=== PATIENT | male | born 1990 ===

== ENCOUNTER 2020-09-29 02:37 | Inpatient (IN) | payer OTHER ==
[~2020-09-29] VITALS: Ht 170.2 cm; Wt 103.0 kg
[2020-09-29 03:18] LABS: BASOPHILS % (AUTO) 1 % (0-1); EOSINOPHILS % (AUTO) 2 % (1-7); LYMPHOCYTES % (AUTO) 31 % (22-44); MEAN CORPUSCULAR HEMOGLOBIN 30.2 pg (27.5-34.5); MEAN CORPUSCULAR HGB CONC 34.5 g/dL (33.2-36.2); MEAN PLATELET VOLUME 7.8 fL (7.4-10.4); MONOCYTES % (AUTO) 8 % (2-9); NEUTROPHILS % (AUTO) 59 % (42-75); PLATELET COUNT 206 x10^3/uL (130-400); RED BLOOD COUNT 5.94 x10^6/uL (4.38-5.82); RED CELL DISTRIBUTION WIDTH 13.4 % (9.4-14.8)
[2020-09-29 03:19] LABS: MD NO
[2020-09-29 03:26] LABS: ALBUMIN 3.8 g/dL (3.4-5.0); ANION GAP 5 mmol/L (5-15); CHLORIDE 110 mmol/L (98-107); CREATININE 1.21 mg/dL (0.7-1.3)
[2020-09-29 03:29] LABS: TROPONIN I 0.036 ng/mL (0.000-0.045)
[2020-09-29] MEDS ORDERED: HEPARIN 25,000 UNITS/250ML PMX 250 ML ONE (03:29)
[2020-09-29] MEDS ORDERED: HEPARIN 5,000 UNITS/ML, 1ML IV ONE (03:30)
[2020-09-29] MEDS ORDERED: HEPARIN 25,000 UNITS/250ML PMX 250 ML IV PRN (03:30)
[2020-09-29] MEDS ORDERED: morphine SULFATE 10 MG/ML, 1ML IVPush PRN (05:00)
[2020-09-29] MEDS ORDERED: ACETAMINOPHEN 325 MG TABLET PO PRN (05:00)
[2020-09-29] MEDS ORDERED: ONDANSETRON 2MG/ML, 2ML IVPush PRN (05:00)
[2020-09-29] MEDS ORDERED: HEPARIN 5,000 UNITS/ML, 1ML ONE ×2 (05:39→11:48)
[2020-09-29] MEDS: HEPARIN 5,000 UNITS/ML, 1ML IV PRN ×2 (05:45→11:51)
--- NOTE | 2020-09-29 05:54 | NUR ---
PT CONTINUES ON 2L O2, OFFICERS AT BEDSIDE, PT IN CUFFS. PT CALM AND COOPERATIVE WITH CARE. DENIES ANY FURTHER NEEDS OR CONCERNS AT THIS TIME.
--- NOTE | 2020-09-29 06:37 | NUR ---
PT UPDATED ON PLAN OF CARE. DENIES ANY FURTHER NEEDS OR CONCERNS. OFFICERS CONTINUE AT BEDSIDE.
--- NOTE | 2020-09-29 07:11 | NUR ---
[facility] RPT REC'D, ASSUMED PT CARE. HEP GTT INFUSING AT 900UNITS/HR. PT VSS, NAD NOTED
--- NOTE | 2020-09-29 08:25 | NUR ---
SPOKE WITH [facility], PT TO HAVE ECHOS TODAY. PT TO REMAIN, NPO. PT INFORMED.
--- NOTE | 2020-09-29 10:52 | NUR ---
BEDSIDE REPORT FROM EVERARDO HODGSON.
--- NOTE | 2020-09-29 12:08 | NUR ---
ECHO GETTING DONE AT BEDSIDE AT THIS TIME.
--- NOTE | 2020-09-29 12:22 | NUR ---
REPORT TO ALEXANDRA HODGSON AT ICU.
[2020-09-29] MEDS ORDERED: ALTEPLASE 10 MG in SODIUM CHLORIDE 0.9% 240 ML IV ONE (13:00)
[2020-09-29] MEDS ORDERED: LIDOCAINE 2%, 20ML ONE (13:37)
[2020-09-29] MEDS ORDERED: FENTANYL PF 100 MCG/2ML ONE (13:37)
[2020-09-29] MEDS ORDERED: MIDAZOLAM 1 MG/ML, 5ML ONE (13:37)
[2020-09-29] MEDS ORDERED: SODIUM CHLORIDE FLUSH 3ML SYRINGE IVF PRN (14:30)
[2020-09-29] MEDS ORDERED: SODIUM CHLORIDE 0.9% 1,000 ML IV SCH (14:30)
[2020-09-29] MEDS ORDERED: Heparin 1000 units/500 ml 500 ML IV SCH (14:30)
[2020-09-29] MEDS ORDERED: MORPHINE SULFATE 4 MG/ML, 1ML IVPush PRN (14:30)
[2020-09-29 15:16] VITALS: BP 113/63
[2020-09-29] MEDS: APIXABAN 5 MG TABLET PO SCH ×2 (15:44→21:25)
[2020-09-29 21:11] LABS: BASOPHILS % (AUTO) 0 % (0-1); EOSINOPHILS % (AUTO) 2 % (1-7); LYMPHOCYTES % (AUTO) 15 % (22-44); MEAN CORPUSCULAR HGB CONC 34.8 g/dL (33.2-36.2); MEAN PLATELET VOLUME 7.5 fL (7.4-10.4); MONOCYTES % (AUTO) 5 % (2-9); NEUTROPHILS % (AUTO) 77 % (42-75); PLATELET COUNT 160 x10^3/uL (130-400)
[2020-09-29 21:14] LABS: MD NO
[2020-09-30 03:18] LABS: BASOPHILS % (AUTO) 1 % (0-1); EOSINOPHILS % (AUTO) 2 % (1-7); LYMPHOCYTES % (AUTO) 21 % (22-44); MEAN CORPUSCULAR HEMOGLOBIN 30.6 pg (27.5-34.5); MEAN CORPUSCULAR HGB CONC 34.3 g/dL (33.2-36.2); MEAN PLATELET VOLUME 7.4 fL (7.4-10.4); MONOCYTES % (AUTO) 8 % (2-9); NEUTROPHILS % (AUTO) 68 % (42-75); PLATELET COUNT 149 x10^3/uL (130-400); RED BLOOD COUNT 5.35 x10^6/uL (4.38-5.82)
[2020-09-30 03:20] LABS: MD NO
[2020-09-30 03:28] LABS: ANION GAP 4 mmol/L (5-15); CALCIUM 8.5 mg/dL (8.5-10.1); CHLORIDE 108 mmol/L (98-107); CREATININE 1.29 mg/dL (0.7-1.3)
[2020-09-30] MEDS: APIXABAN 5 MG TABLET PO SCH ×2 (08:21→21:45)
[2020-09-30 09:06] LABS: BASOPHILS % (AUTO) 1 % (0-1); EOSINOPHILS % (AUTO) 2 % (1-7); LYMPHOCYTES % (AUTO) 14 % (22-44); MEAN CORPUSCULAR HEMOGLOBIN 30.1 pg (27.5-34.5); MEAN CORPUSCULAR HGB CONC 34.1 g/dL (33.2-36.2); MEAN PLATELET VOLUME 7.6 fL (7.4-10.4); MONOCYTES % (AUTO) 6 % (2-9); NEUTROPHILS % (AUTO) 77 % (42-75); PLATELET COUNT 164 x10^3/uL (130-400); RED BLOOD COUNT 5.64 x10^6/uL (4.38-5.82); RED CELL DISTRIBUTION WIDTH 13.1 % (9.4-14.8)
[2020-09-30 09:10] LABS: MD NO
[2020-09-30 11:23] VITALS: BP 118/72
[2020-09-30 12:49] LABS: ALBUMIN 3.6 g/dL (3.4-5.0)
[2020-09-30 12:54] LABS: BILIRUBIN, DIRECT 0.2 mg/dL (0.1-0.2); BILIRUBIN,INDIRECT 0.6 mg/dL (0.0-2.0); BILIRUBIN,TOTAL 0.8 mg/dL (0.2-1.0); TOTAL PROTEIN 7.6 g/dL (6.4-8.2)
[2020-09-30 13:59] VITALS: BP 121/80
[2020-09-30] MEDS ORDERED: APIX5TAB PO (14:50)
[2020-09-30 21:07] VITALS: BP 139/82
[2020-10-01 02:06] VITALS: BP 124/77
[2020-10-01] MEDS: APIXABAN 5 MG TABLET PO SCH (07:29)
[2020-10-01 08:48] VITALS: BP 116/70
[2020-10-01 13:58] VITALS: BP 117/74
[2020-10-06] MEDS ORDERED: APIXABAN 5 MG TABLET PO SCH (09:00)
== END 2020-10-01 14:03 | DRG 166 ==
LOC: ED 03:33 → EDIP 04:16 → UNDOADMIN 04:16 → EDIP 05:29 → ICU 14:52 → ORIP 09-30 10:46 → 5SO 09-30 11:21
PROVIDERS: ADMIT Family Medicine; ATTEND Internal Medicine
PROC: 02FR3Z0 Fragmentation of Left Pulmonary Artery, Percutaneous Approach, Ultrasonic (ICD-10-PCS; principal; 2020-09-29)
DX: I26.02 Saddle embolus of pulmonary artery with acute cor pulmonale (principal); I50.41 Acute combined systolic (congestive) and diastolic (congestive) heart failure; J96.01 Acute respiratory failure with hypoxia; E66.9 Obesity, unspecified; I27.20 Pulmonary hypertension, unspecified; Z20.828 Contact with and (suspected) exposure to other viral communicable diseases; Z79.01 Long term (current) use of anticoagulants; Z87.891 Personal history of nicotine dependence; Z68.35 Body mass index [BMI] 35.0-35.9, adult
CPT/HCPCS: 36415; 37211; 93451; 96374; 96375; 99291; J3490; 80048; 80076; 82040; 83880; 84484; 85025; 85384; 85520; 87081; 93005; 93306; 93970; 99156; 99157; C1769; C1894; G0378; J1644; J2250; J3010; J2270; U0003